=== PATIENT | female | born 1945 | race Caucasian/White ===

== ENCOUNTER → 2016-10-29 | Day surgery (SDC) | payer OTHER | END | disposition home or self-care (01) | LOC: FIMAGING 11:58 | PROVIDERS: ATTEND Physical Medicine & Rehabilitation | DX: M48.06 Spinal stenosis, lumbar region (principal); Z53.9 Procedure and treatment not carried out, unspecified reason ==

== ENCOUNTER 2016-11-04 12:05 | Day surgery (SDC) | payer OTHER ==
[2016-11-04] MEDS ORDERED: NS 1,000 ML IV SCH (12:45)
[2016-11-04] MEDS ORDERED: fentaNYL 100 MCG/2 ML INJ ONE (13:50)
[2016-11-04] MEDS ORDERED: MIDAZOLAM 2 MG/2 ML VIAL ONE (13:50)
[2016-11-04] MEDS ORDERED: TRIAMCINOLONE ACETONIDE 200 MG/5 ML MDV IM ONE (14:42)
[2016-11-04] MEDS ORDERED: IOPAMIDOL (ISOVUE-M 300) 15 ML VIAL IV ONE (14:43)
[2016-11-04] MEDS ORDERED: ONDANSETRON 4 MG/2 ML VIAL IVP PRN (14:58)
[2016-11-04] MEDS ORDERED: ONDANSETRON DISINTEGRATING 4 MG TAB PO PRN (15:02)
--- NOTE | 2016-11-04 16:59 | IR ---
Lumbar Epidural Injection via Caudal Epidural Catheter HISTORY: Recurrent low back pain. The patient enjoyed good results from previous injection of February 27, 2016. Symptoms reappeared in July 2016. Consent: Risks and benefits of the procedure were discussed in detail. Informed consent was obtained . MEDICATIONS: Intravenous conscious sedation and analgesia were given under my supervision. EKG, vital signs, and pulse oximetry were monitored. The patient received 2 mg of Versed and 100 mcg of fentany l, intravenously. Start time: 1355. End time: 1431. Fluoroscopy time in minutes: 3.3 Estimated exposure in milligray: 146. TECHNIQUE: With the patient prone, the upper intergluteal cleft was prepped and draped in sterile fas hion. 1% Xylocaine was used for local anesthetic. Biplane fluoroscopic guidance was used to place an 18-gauge Tuohy needle into the sacral spinal canal via the inferior sacral aperture. After removing t he stylette, the patient coughed and performed Valsalva maneuver. Neither blood nor spinal fluid retu rned into the hub of the needle. 1 mL of Isovue-M 300 was injected and biplane spot images were obtai johnny. A 2-Urdu Arrow epidural catheter was advanced over a 0.014 Mailman wire coaxially through the Tuohy needle. The wire was removed and an extrarenal hub was attached to the catheter. 2.5 mL of Isov ue-M 300 were injected and biplane spot images were obtained. 2 mL of Kenalog (80 mg) and 3 mL of pre servative free 1% Xylocaine were injected. Needle and catheter were removed. Biplane spot images were obtained. The patient tolerated the procedure well and was returned to postprocedure recovery area i n stable condition. Epidurogram: Compare February 27, 2016. The epidural catheter passes up the sacral spinal canal, terminati ng cephalad at the level of the upper cortical margin of L5. Epidural contrast extends from the level of the L4-L5 interspace down through S3. Severe features of chronic disk degeneration are again demo nstrated at L4-L5. IMPRESSION: Lumbosacral epidural injection of long-acting steroid and rapid-acting anesthetic via a c audally introduced epidural catheter. - - - - - - - - - - - - - - - - - - - - - - - - - - - - - (PQRS Measures: Current medications were listed in the medical record, including all known prescripti ons, fmoz-ypi-cyxwbod medications, herbal medications, and nutritional supplements. Tobacco use: None . Prophylactic Antibiotic: Unnecessary. VTE Prophylaxis: Unnecessary.)
== END 2016-11-04 15:30 | disposition home or self-care (01) ==
LOC: FIMAGING 12:05
PROVIDERS: ATTEND Radiology Diagnostic Radiology
PROC: 3E0S33Z Introduction of Anti-inflammatory into Epidural Space, Percutaneous Approach (ICD-10-PCS; principal; 2016-11-04 14:50)
PROC: 3E0S3BZ Introduction of Anesthetic Agent into Epidural Space, Percutaneous Approach (ICD-10-PCS; principal; 2016-11-04 14:50)
DX: M54.5 Low back pain (principal)
CPT/HCPCS: 62323; 99152; C1769; J2250; J3010; J3301; Q9967

== ENCOUNTER 2017-05-17 12:10 | Day surgery (SDC) | payer OTHER ==
[2017-05-17] MEDS ORDERED: FLUMAZENIL 0.5 MG/5 ML MDV IVP ONE (14:00)
[2017-05-17] MEDS ORDERED: NALOXONE HCL 0.4 MG/ML INJ ONE (14:00)
[2017-05-17] MEDS ORDERED: MIDAZOLAM 2 MG/2 ML VIAL ONE (14:00)
[2017-05-17] MEDS ORDERED: fentaNYL 100 MCG/2 ML INJ ONE (14:00)
[2017-05-17] MEDS ORDERED: ATROPINE SULFATE 1 MG/ML VIAL ONE (14:23)
[2017-05-17] MEDS ORDERED: TRIAMCINOLONE ACETONIDE 200 MG/5 ML MDV IM ONE (14:34)
[2017-05-17] MEDS ORDERED: IOPAMIDOL (ISOVUE-M 300) 15 ML VIAL ONE (14:34)
[2017-05-17] MEDS ORDERED: LIDOCAINE 1% 300 MG/30 ML SDV ONE (14:34)
[2017-05-17 15:13] VITALS: TEMP 97.7
== END 2017-05-17 15:21 | disposition home or self-care (01) ==
LOC: FIMAGING 12:10
PROVIDERS: ATTEND Physical Medicine & Rehabilitation
PROC: 3E0S33Z Introduction of Anti-inflammatory into Epidural Space, Percutaneous Approach (ICD-10-PCS; principal; 2017-05-17 14:34)
PROC: 3E0S3BZ Introduction of Anesthetic Agent into Epidural Space, Percutaneous Approach (ICD-10-PCS; principal; 2017-05-17 14:34)
DX: M48.06 Spinal stenosis, lumbar region (principal)
CPT/HCPCS: J0461; J2250; J2310; J3010; J3301; Q9967

== ENCOUNTER 2017-09-07 19:22 | Observation (INO) | payer OTHER ==
[2017-09-07] MEDS ORDERED: fentaNYL 100 MCG/2 ML INJ IVP ONE ×2 (19:44→21:50)
[2017-09-07] MEDS ORDERED: NS 1,000 ML IV ONE ×2 (19:44→20:20)
[2017-09-07] MEDS ORDERED: ONDANSETRON 4 MG/2 ML VIAL IVP ONE (19:44)
[2017-09-07 19:51] LABS: % IMMATURE GRANULYOCYTES 0.4 % (0.0-1.1); ABSOLUTE IMMATURE GRANULOCYTES 0.06 10^3/uL (0.00-0.10); ADD DIFF? NO; ADD MORPH? NO; ADD SCAN? NO; ATYPICAL LYMPHOCYTE FLAG 0 (0-99); FRAGMENT RBC FLAG 0 (0-99); HEMATOCRIT 41.2 % (38.0-47.0); HEMOGLOBIN 14.5 g/dL (12.6-16.3); LEFT SHIFT FLG 0 (0-99); LIPEMIA HEMOLYSIS FLAG 90 (0-99); MEAN CELL HEMOGLOBIN 28.5 pg (27.9-34.1); MEAN CELL HEMOGLOBIN CONCENTR. 35.2 g/dL (32.4-36.7); MEAN CELL VOLUME 80.9 fL (81.5-99.8); MEAN PLATELET VOLUME 8.9 fL (8.7-11.7); PLATELET CLUMPS FLAG 0 (0-99); PLATELET COUNT 339 10^3/uL (150-400); RED BLOOD CELL COUNT 5.09 10^6/uL (4.18-5.33); RED CELL DISTRIBUTION WIDTH 13.8 % (11.5-15.2)
--- NOTE | 2017-09-07 19:51 | EDPHY ---
HPI/HX/ROS/PE/MDM Narrative: CHIEF COMPLAINT: Abdominal pain HPI: This patient is a 72 year old female arriving with her complaining of abdominal pain onset Cody night, five days ago, following dinner. Her pain seems to move around her abdomen but is generally periumbilical, radiating to the right and left. The severity of her discomfort ranges from 5-8/10. If she lays on her left side, she is able to belch, and if she lies on her right, she is able to pass gas. She has had diarrhea for the past several days, but denies vomiting. She endorses reduced appetite. She denies history of abdominal surgery. She has taken narcotics daily for the last year to treat chronic pain due to spinal stenosis, but has not had difficulty with constipation in the past. She denies fever, chest pain, shortness of breath, urinary complaints, or other associated symptoms. REVIEW OF SYSTEMS: Aside from elements discussed in the HPI, a comprehensive 10-point review of systems was reviewed and is negative. PMH: Hysterectomy. Spinal stenosis (0.5mg Hydrocodone nightly). Hypertension. Hyperlipidemia. Hypothyroidism. Colitis. SOCIAL HISTORY: . at bedside. Lives in [place]. Retired. PHYSICAL EXAM: General:Patient is alert, in no acute distress. ENT:Eyes are normal to inspection. ENT inspection normal. Neck: Normal inspection. Full range of motion. Respiratory:No respiratory distress. Breath sounds normal bilaterally. Cardiovascular: Regular rate and rhythm. Strong peripheral pulses. Normal cap refill. Abdomen: Generalized abdominal tenderness. There are no peritoneal signs. There are normal bowel sounds. Back: Normal to inspection. No tenderness to palpation. Skin: Normal color. No rash. Warm and dry. Extremities: Normal appearance. Full range of motion. Neuro: Oriented x3. Normal motor function. Normal sensory function. ED Course: 72 year old female presents with five day history of abdominal pain. Exam reveals generalized lower abdominal tenderness. IV established. Plan for labs including CBC, chemistries, liver, lipase. Plan to administer 50mcg IV fentanyl and 4mg IV Zofran for symptom relief. Administered 1L IV NS. The patient's pain is resolved following administration of fentanyl and Zofran. Labs reveal hyponatremia, hypercalcemia. Plan to administer an additional 1L IV NS. Creatinine elevated at 1.4. Plan to proceed with CT abdomen/pelvis with contrast. 20:[address] Molina, radiologist. Evidence of inflammation of the ileum and stomach. No evidence of diverticulitis. No bowel obstruction. 2109: Re-assessed patient. She feels like pain is starting to come back and does not feel comfortable going home. The patient does have hyponatremia and hypercalcemia per lab work. I see no signs of surgical emergency. Discussed case with hospitalist service for admission. MDM: This patient presents with abdominal pain. Workup in the ED indicates likely enteritis, without evidence of surgical process. Patient was treated with pain medication and IVNS, but on re-evaluation her pain has returned and she does not feel comfortable going home. I think she is appropriate for observation stay overnight to ensure that symptoms do not change or worsen and to continue with supportive care. - Data Points Imaging: Discussed imaging studies w/ call center analyst Radiologist Laboratory Results: Laboratory Results 09/07/17 19:44 09/07/17 19:44 09/07/17 09/07/17 19:44 19:44 WBC 13.84 10^3/uL H 10^3/uL (3.80-9.50) RBC 5.09 10^6/uL 10^6/uL (4.18-5.33) Hgb 14.5 g/dL g/dL (12.6-16.3) Hct 41.2 % % (38.0-47.0) MCV 80.9 fL L fL (81.5-99.8) MCH 28.5 pg pg (27.9-34.1) MCHC 35.2 g/dL g/dL (32.4-36.7) RDW 13.8 % % (11.5-15.2) Plt Count 339 10^3/uL 10^3/uL (150-400) MPV 8.9 fL fL (8.7-11.7) Neut % (Auto) 68.5 % % (39.3-74.2) Lymph % (Auto) 21.7 % % (15.0-45.0) [place] % (Auto) 7.9 % % (4.5-13.0) Eos % (Auto) 0.9 % % (0.6-7.6) Baso % (Auto) 0.6 % % (0.3-1.7) Nucleat RBC Rel Count 0.0 % % (0.0-0.2) Absolute Neuts (auto) 9.46 10^3/uL H 10^3/uL (1.70-6.50) Absolute Lymphs (auto) 3.01 10^3/uL H 10^3/uL (1.00-3.00) Absolute Monos (auto) 1.10 10^3/uL H 10^3/uL (0.30-0.80) Absolute Eos (auto) 0.13 10^3/uL 10^3/uL (0.03-0.40) Absolute Basos (auto) 0.08 10^3/uL 10^3/uL (0.02-0.10) Absolute Nucleated RBC 0.00 10^3/uL 10^3/uL (0-0.01) Immature Gran % 0.4 % % (0.0-1.1) Immature Gran # 0.06 10^3/uL 10^3/uL (0.00-0.10) Sodium 127 mEq/L L mEq/L (134-144) Potassium 3.4 mEq/L L mEq/L (3.5-5.2) Chloride 90 mEq/L L mEq/L (97-110) Carbon Dioxide 23 mEq/l mEq/l (22-31) Anion Gap 14 mEq/L mEq/L (8-16) BUN 14 mg/dL mg/dL (7-23) Creatinine 1.4 mg/dL H mg/dL (0.6-1.0) Estimated GFR 37 Glucose 106 mg/dL H mg/dL (70-100) Calcium 12.1 mg/dL H mg/dL (8.5-10.4) Phosphorus 3.8 mg/dL mg/dL (2.5-4.5) Total Bilirubin 0.6 mg/dL mg/dL (0.1-1.4) Conjugated Bilirubin 0.1 mg/dL mg/dL (0.0-0.5) Unconjugated Bilirubin 0.5 mg/dL mg/dL (0.0-1.1) AST 30 IU/L IU/L (14-46) ALT 36 IU/L IU/L (9-52) Alkaline Phosphatase 119 IU/L IU/L (38-126) Total Protein 6.8 g/dL g/dL (6.3-8.2) Albumin 4.5 g/dL g/dL (3.5-5.0) Lipase 131 IU/L IU/L (23-300) Medications Given: Discontinued Medications Fentanyl (Sublimaze) 50 mcg IVP EDNOW ONE Stop: 09/07/17 19:45 Last Admin: 09/07/17 19:49 Dose: 50 mcg Sodium Chloride (Ns) 1,000 mls @ 0 mls/hr IV ONCE ONE; Wide Open PRN Reason: Protocol Stop: 09/07/17 19:45 Last Admin: 09/07/17 19:48 Dose: 1,000 mls Sodium Chloride (Ns) 1,000 mls @ 0 mls/hr IV ONCE ONE; Wide Open PRN Reason: Protocol Stop: 09/07/17 20:21 Last Admin: 09/07/17 20:34 Dose: 1,000 mls Ondansetron HCl (Zofran) 4 mg IVP EDNOW ONE Stop: 09/07/17 19:45 Last Admin: 09/07/17 19:48 Dose: 4 mg General Time Seen by Provider: 09/07/17 19:44 Initial Vital Signs: Initial Vital Signs Temperature (C) 36.7 C 09/07/17 19:27 Heart Rate 78 09/07/17 19:27 Respiratory Rate 14 09/07/17 19:27 Blood Pressure 149/88 H 09/07/17 19:27 O2 Sat (%) 95 09/07/17 19:27 O2 Delivery Mode Room Air Allergies/Adverse Reactions: erythromycin base Allergy (Verified 10/25/16 10:07) Home Medications: Medication Instructions Recorded Cholecalciferol Vit D3 [Vitamin D3 1,000 units PO DAILY 10/25/16 (*)] Gabapentin [Neurontin 300 MG (*)] 600 mg PO HS 10/25/16 Hydrochlorothiazide [HCTZ (*)] 25 mg PO DAILY 10/25/16 Levothyroxine [Synthroid 50 mcg 50 mcg PO DAILY06 10/25/16 (*)] Simvastatin 20 mg PO HS 10/25/16 Lisinopril [Zestril 10 mg (*)] 10 mg PO DAILY 09/07/17 Acetaminophen [Tylenol 325mg (*)] 650 mg PO Q4HRS PRN tab 09/08/17 oxyCODONE IR [Oxycodone Ir (*)] 5 - 10 mg PO Q3HRS PRN #14 tab 09/08/17 Departure - Departure Disposition: [facility] Inpatient Acute Clinical Impression: Abdominal pain, Hyponatremia, Hypercalcemia Condition: Fair Report Scribed for: Anthony Bowen Report Scribed by: Argenis Isaac Date of Report: 09/07/17 Time of Report: 19:51 Physician Review and Approval Statement: Portions of this note were transcribed by an ED scribe. I personally performed the history, physical exam, and medical decision making; and confirm the accuracy of the information in the transcribed note.
[2017-09-07 20:06] LABS: ALANINE AMINOTRANSFERASE 36 IU/L (9-52); ALBUMIN 4.5 g/dL (3.5-5.0); ALKALINE PHOSPHATASE 119 IU/L (38-126); ANION GAP 14 mEq/L (8-16); ASPARTATE AMINOTRANSFERASE 30 IU/L (14-46); BILIRUBIN,TOTAL 0.6 mg/dL (0.1-1.4); BILIRUBIN-CONJUGATED 0.1 mg/dL (0.0-0.5); BILIRUBIN-UNCONJUGATED 0.5 mg/dL (0.0-1.1); CALCIUM 12.1 mg/dL (8.5-10.4); CARBON DIOXIDE 23 mEq/l (22-31); CHLORIDE 90 mEq/L (97-110); CREATININE 1.4 mg/dL (0.6-1.0); GLOMERULAR FILTRATION RATE 37; GLUCOSE 106 mg/dL (70-100); POTASSIUM 3.4 mEq/L (3.5-5.2); SODIUM 127 mEq/L (134-144); TOTAL PROTEIN 6.8 g/dL (6.3-8.2)
[2017-09-07] MEDS ORDERED: IOPAMIDOL (ISOVUE-300) 100 ML BTL ONE (20:11)
[2017-09-07] MEDS ORDERED: ONDANSETRON 4 MG/2 ML VIAL IVP PRN (22:20)
[2017-09-07] MEDS ORDERED: ONDANSETRON DISINTEGRATING 4 MG TAB PO PRN (22:20)
[2017-09-07] MEDS ORDERED: ACETAMINOPHEN 325 MG TAB PO PRN (22:20)
[2017-09-07] MEDS ORDERED: NS 1,000 ML IV SCH (22:30)
--- NOTE | 2017-09-07 22:41 | PDGENHP ---
History and Physical - Chief Complaint Abdominal pain - History of Present Illness 72 yo F w/ HTN presents with abdominal pain. Patient explains she first developed abdominal pain on Tuesday, about 2 hours after going out to a restaurant to eat mussels. The diarrhea, describes as watery and non-bloody, continued for 3-4 days but has decreased in severity each day. She has had only one BM today. She thought she was well until the abdominal pain returned today, so she came to the ED. She has taken very little PO over the last few days as this exacerbates the pain. History Information - Allergies/Home Medication List Allergies/Adverse Reactions: erythromycin base Allergy (Verified 10/25/16 10:07) Home Medications: Cholecalciferol Vit D3 [Vitamin D3 (*)] 1,000 units PO DAILY 10/25/16 [Last Taken 1 Week Ago ~08/31/17] Gabapentin [Neurontin 300 MG (*)] 600 mg PO HS 10/25/16 [Last Taken 09/06/17] Hydrochlorothiazide [HCTZ (*)] 25 mg PO DAILY 10/25/16 [Last Taken 09/07/17] Hydrocodone/Acetaminophen [[place] 5/325 (*)] 1 tab PO HS PRN 10/25/16 [Last Taken 09/06/17] Levothyroxine [Synthroid 50 mcg (*)] 50 mcg PO DAILY06 10/25/16 [Last Taken ] Simvastatin 20 mg PO HS 10/25/16 [Last Taken 09/06/17] Lisinopril [Zestril 10 mg (*)] 10 mg PO DAILY 09/07/17 [Last Taken 09/07/17] I have personally reviewed and updated: family history, medical history - Past Medical History hypertension - Family History Positive for: cancer - Social History Smoking Status: Never smoked Review of Systems Review of Systems: ROS: 10pt was reviewed & negative except for what was stated in HPI & below Physical Exam Physical Exam: Temp Pulse Resp BP Pulse Ox 36.8 C 55 L 18 145/92 H 92 09/07/17 22:13 09/07/17 22:13 09/07/17 22:13 09/07/17 22:13 09/07/17 22:13 Constitutional: no apparent distress, appears nourished Eyes: PERRL, EOMI Ears, Nose, Mouth, Throat: moist mucous membranes, no oral mucosal ulcers Cardiovascular: regular rate and rhythym, systolic murmur Respiratory: no respiratory distress, no rales or rhonchi Gastrointestinal: normoactive bowel sounds, tenderness (Mild, diffuse), No guarding, No rebound, No distension Skin: warm, normal color Musculoskeletal: full muscle strength, no muscle tenderness Neurologic: AAOx3, CN II-XII Intact Psychiatric: interacting appropriately, not anxious Lab Data & Imaging Review 09/07/17 19:44 09/07/17 19:44 WBC 13.84 10^3/uL (3.80-9.50) H 09/07/17 19:44 RBC 5.09 10^6/uL (4.18-5.33) 09/07/17 19:44 Hgb 14.5 g/dL (12.6-16.3) 09/07/17 19:44 Hct 41.2 % (38.0-47.0) 09/07/17 19:44 MCV 80.9 fL (81.5-99.8) L 09/07/17 19:44 MCH 28.5 pg (27.9-34.1) 09/07/17 19:44 MCHC 35.2 g/dL (32.4-36.7) 09/07/17 19:44 RDW 13.8 % (11.5-15.2) 09/07/17 19:44 Plt Count 339 10^3/uL (150-400) 09/07/17 19:44 MPV 8.9 fL (8.7-11.7) 09/07/17 19:44 Neut % (Auto) 68.5 % (39.3-74.2) 09/07/17 19:44 Lymph % (Auto) 21.7 % (15.0-45.0) 09/07/17 19:44 [place] % (Auto) 7.9 % (4.5-13.0) 09/07/17 19:44 Eos % (Auto) 0.9 % (0.6-7.6) 09/07/17 19:44 Baso % (Auto) 0.6 % (0.3-1.7) 09/07/17 19:44 Nucleat RBC Rel Count 0.0 % (0.0-0.2) 09/07/17 19:44 Absolute Neuts (auto) 9.46 10^3/uL (1.70-6.50) H 09/07/17 19:44 Absolute Lymphs (auto) 3.01 10^3/uL (1.00-3.00) H 09/07/17 19:44 Absolute Monos (auto) 1.10 10^3/uL (0.30-0.80) H 09/07/17 19:44 Absolute Eos (auto) 0.13 10^3/uL (0.03-0.40) 09/07/17 19:44 Absolute Basos (auto) 0.08 10^3/uL (0.02-0.10) 09/07/17 19:44 Absolute Nucleated RBC 0.00 10^3/uL (0-0.01) 09/07/17 19:44 Immature Gran % 0.4 % (0.0-1.1) 09/07/17 19:44 Immature Gran # 0.06 10^3/uL (0.00-0.10) 09/07/17 19:44 Sodium 127 mEq/L (134-144) L 09/07/17 19:44 Potassium 3.4 mEq/L (3.5-5.2) L 09/07/17 19:44 Chloride 90 mEq/L (97-110) L 09/07/17 19:44 Carbon Dioxide 23 mEq/l (22-31) 09/07/17 19:44 Anion Gap 14 mEq/L (8-16) 09/07/17 19:44 BUN 14 mg/dL (7-23) 09/07/17 19:44 Creatinine 1.4 mg/dL (0.6-1.0) H 09/07/17 19:44 Estimated GFR 37 09/07/17 19:44 Glucose 106 mg/dL (70-100) H 09/07/17 19:44 Calcium 12.1 mg/dL (8.5-10.4) H 09/07/17 19:44 Phosphorus 3.8 mg/dL (2.5-4.5) 09/07/17 19:44 Total Bilirubin 0.6 mg/dL (0.1-1.4) 09/07/17 19:44 Conjugated Bilirubin 0.1 mg/dL (0.0-0.5) 09/07/17 19:44 Unconjugated Bilirubin 0.5 mg/dL (0.0-1.1) 09/07/17 19:44 AST 30 IU/L (14-46) 09/07/17 19:44 ALT 36 IU/L (9-52) 09/07/17 19:44 Alkaline Phosphatase 119 IU/L (38-126) 09/07/17 19:44 Total Protein 6.8 g/dL (6.3-8.2) 09/07/17 19:44 Albumin 4.5 g/dL (3.5-5.0) 09/07/17 19:44 Lipase 131 IU/L (23-300) 09/07/17 19:44 Imaging Review: CT A/P with subtle findings possibly consistent with enteritis. Assessment & Plan Assessment: 72 yo F w/ HTN presents with enteritis and associated dehydration. Plan: 1. Abdominal pain - Suspect viral gastroenteritis noting history of several days of diarrhea and abdominal pain after eating at a seafood restaurant. Denies bloody stools or melena. CT A/P only with subtle findings of possible enteritis; LFTs WNL. - Oxycodone, morphine PRN for pain - mIVF, clear liquid diet and advance as tolerated - Will not send GI PCR for now as diarrhea has resolved, would consider this if diarrhea were to again increase or she does not improve as expected with supportive care only 2. Hyponatremia - Suspect hypovolemic etiology in setting of diarrhea and poor PO intake. IVF and recheck BMP. 3. SERENE - Cr 1.4 on admission, likely pre-renal azotemia. IVF and recheck BMP. 4. HTN - Well controlled on home meds 5. Hypothyroid - On LTX as outpatient Diet - Clears, ADAT Ppx - SCDs Code - Full Dispo - Admit to observation status
[2017-09-07] MEDS ORDERED: POTASSIUM Cl (KCl) 40 MEQ in NS 1,000 ML IV SCH (22:45)
[2017-09-08] MEDS: oxyCODONE IR 5 MG TAB PO PRN ×2 (02:41→08:34)
[2017-09-08 04:55] LABS: % IMMATURE GRANULYOCYTES 0.4 % (0.0-1.1); ABSOLUTE IMMATURE GRANULOCYTES 0.04 10^3/uL (0.00-0.10); ADD DIFF? NO; ADD MORPH? NO; ADD SCAN? NO; ATYPICAL LYMPHOCYTE FLAG 0 (0-99); FRAGMENT RBC FLAG 0 (0-99); HEMATOCRIT 34.6 % (38.0-47.0); HEMOGLOBIN 11.3 g/dL (12.6-16.3); LEFT SHIFT FLG 0 (0-99); LIPEMIA HEMOLYSIS FLAG 80 (0-99); MEAN CELL HEMOGLOBIN 27.3 pg (27.9-34.1); MEAN CELL HEMOGLOBIN CONCENTR. 32.7 g/dL (32.4-36.7); MEAN CELL VOLUME 83.6 fL (81.5-99.8); PLATELET CLUMPS FLAG 0 (0-99); PLATELET COUNT 255 10^3/uL (150-400); RED BLOOD CELL COUNT 4.14 10^6/uL (4.18-5.33)
[2017-09-08 05:16] LABS: ANION GAP 11 mEq/L (8-16); CALCIUM 9.4 mg/dL (8.5-10.4); CARBON DIOXIDE 21 mEq/l (22-31); CHLORIDE 99 mEq/L (97-110); CREATININE 1.3 mg/dL (0.6-1.0); GLOMERULAR FILTRATION RATE 40; GLUCOSE 88 mg/dL (70-100); MAGNESIUM 1.5 mg/dL (1.6-2.3); POTASSIUM 3.7 mEq/L (3.5-5.2); SODIUM 131 mEq/L (134-144)
[2017-09-08] MEDS ORDERED: CHOLECALCIFEROL VIT D3 1,000 UNITS TAB PO SCH (09:00)
[2017-09-08] MEDS ORDERED: LISINOPRIL 10 MG TAB PO SCH (09:00)
[2017-09-08 11:14] VITALS: BP 181/72; PULSE 46; RESP 16; TEMP 98.3; O2SAT 92
--- NOTE | 2017-09-08 11:31 | ASMTCMCOM ---
CM Note CM Note Notes: Pt. is a 72-year-old woman admitted in OBS status with abdominal pain. Pt. w/ hx. hysterectomy, spinal stenosis, colitis, and HTN. Pt. has chronic pain from spinal stenosis and on daily narcotics. Pt. lives w/ her [employer]. Pt. likely to be d/c'ed indpendently. CM available should d/c POC change. Date Signed: 09/08/2017 11:30 AM Electronically Signed By:Kimberley Red LCSW
--- NOTE | 2017-09-08 13:14 | GDS ---
[f rep st] DISCHARGE SUMMARY DISCHARGE DIAGNOSES: 1. Abdominal pain. 2. Hyponatremia. 3. Acute kidney injury. 4. Hypertension. 5. Hypothyroidism. 6. Enteritis. STUDIES AND PROCEDURES DONE: 1. CT of the abdomen. 2. Abdominal x-ray. PHYSICAL EXAM: GENERAL: The patient is alert. VITAL SIGNS: Afebrile at 36.8, pulse is 52, respira tory rate is 18, blood pressure is 126/62. She is saturating 94% on room air. I have seen and evaluated the patient on the day of discharge. HOSPITAL COURSE: The patient is a 72-year-old female who presented to the emergency room with compla ints of abdominal pain. She was evaluated and diagnosed with: 1. Enteritis. During this hospitalization she received a CT scan, as well as an abdominal x-ray. T here is no clear-cut evidence of small bowel obstruction or diverticulitis. The patient was treated with supportive management. She still has mild intermittent pain. I suspect that this will resolve over time. She has received lots of discharge instruction regarding the need to return to the emerge ncy room if her symptoms worsen or if she develops fever or continued symptoms. 2. Hyponatremia. This is in the setting of hypovolemia, and has resolved with IV fluids. 3. Acute kidney injury. Again in the setting of hypovolemia. Improved with fluid hydration. 4. History of hypertension. Her home medications will be initiated at the time of disposition. 5. History of hypothyroidism. Her medications will be initiated at home. DISPOSITION: The patient will be discharged home independently with her . There are no pendi ng studies. Followup will be with her primary care physician. Again, she has been instructed to ret urn to the emergency room if she has any worsening symptoms or issues. /[id number]/MODL
[2017-09-08] MEDS ORDERED: GABAPENTIN 300 MG CAP PO SCH (21:00)
[2017-09-08] MEDS ORDERED: NON-FORMULARY NEW DRUG (Simvastatin [Simvastatin] 20 MG) PO SCH (21:00)
[2017-09-08] MEDS ORDERED: ATORVASTATIN CALCIUM 10 MG TAB PO SCH (21:00)
[2017-09-09] MEDS ORDERED: LEVOTHYROXINE 50 MCG TAB PO SCH (06:00)
--- NOTE | 2017-09-09 10:17 | ASDISCHSUM ---
Discharge Information Plan Status:Home with No Needs Medically Cleared to Leave:09/07/2017 Discharge Date:09/08/2017 01:05 PM CM D/C Disposition:Home, Routine, Self-Care ADT D/C Disposition:Home, Routine, Self-Care Projected Discharge Date:09/08/2017 12:00 AM Transportation at D/C: Discharge Delay Reason: Follow-Up Date:09/08/2017 12:00 AM Discharge Slot: Final Diagnosis: Placement Information Patient Contact Information Contact Name:ADONAY Relationship: Address:[address] City:[place] Alternate Phone: [facility]/Zip Code:[place] [address] Email: Financial Information Financial Class:Medicare Advantage Plans Primary Plan Desc:[employer] MEDICARE ADV Primary Plan Number:[id number] Secondary Plan Desc: Secondary Plan Number: Assessment Information [facility] CM Progress Note CM Note CM Note Notes: Pt. is a 72-year-old woman admitted in OBS status with abdominal pain. Pt. w/ hx. hysterectomy, spinal stenosis, colitis, and HTN. Pt. has chronic pain from spinal stenosis and on daily narcotics. Pt. lives w/ her [employer]. Pt. likely to be d/c'ed indpendently. CM available should d/c POC change. Date Signed: 09/08/2017 11:30 AM Electronically Signed By:Kimberley Red LCSW Case Management Discharge Plan Note Case Management Discharge Discharge Order Complete? Answers: Yes Patient to Obtain Answers: via Family Medications Discharge Comments Notes: Pt. d/cing today independently. No APPIAH required due to within d/c timeframe. No IM required. Date Signed: 09/08/2017 01:02 PM Electronically Signed By:Kimberley Red LCSW Intervention Information
== END 2017-09-08 13:05 | disposition home or self-care (01) ==
LOC: F3E 22:11
PROVIDERS: ADMIT Internal Medicine; ATTEND Hospitalist
PROC: 3E0337Z Introduction of Electrolytic and Water Balance Substance into Peripheral Vein, Percutaneous Approach (ICD-10-PCS; principal; 2017-09-07)
DX: R10.9 Unspecified abdominal pain (principal); E87.1 Hypo-osmolality and hyponatremia; E83.52 Hypercalcemia; E86.9 Volume depletion, unspecified; K52.9 Noninfective gastroenteritis and colitis, unspecified; N17.9 Acute kidney failure, unspecified; I10 Essential (primary) hypertension; E03.9 Hypothyroidism, unspecified; E78.5 Hyperlipidemia, unspecified; G89.29 Other chronic pain; M48.00 Spinal stenosis, site unspecified
CPT/HCPCS: 74000; 74177; 96361; 96374; 96375; 96376; 99285; G0378; J2405; J3010; Q9967

== ENCOUNTER → 2017-11-16 | Outpatient (CLI) | payer OTHER | LOC: FIMAGING 18:47 | PROVIDERS: ATTEND Family Medicine | DX: M47.897 Other spondylosis, lumbosacral region (principal); M48.061 Spinal stenosis, lumbar region without neurogenic claudication; M51.27 Other intervertebral disc displacement, lumbosacral region ==

== ENCOUNTER 2017-12-28 08:51 | Inpatient (IN) | payer OTHER ==
[2017-12-28] MEDS ORDERED: ACETAMINOPHEN 500 MG TAB PO ONE (09:09)
[2017-12-28] MEDS ORDERED: ceFAZolin 2 GM/SWFI 2 GM/20 ML SYR IVP ONE (09:09)
[2017-12-28] MEDS ORDERED: LIDOCAINE 1% 2 ML INJ ID PRN (09:11)
[2017-12-28] MEDS ORDERED: LR 1,000 ML IV ONE (09:11)
[2017-12-28] MEDS ORDERED: CHLORHEXIDINE GLUC HIBICLENS 118 ML BTL TP ONE (09:37)
[2017-12-28] MEDS ORDERED: THROMBIN (BOVINE) 5,000 UNIT VIAL TP ONE (09:37)
[2017-12-28] MEDS ORDERED: BUPIVACAINE 0.25% 30 ML SDV ONE (09:37)
[2017-12-28] MEDS ORDERED: AVITENE POWDER 1 GM JAR TP ONE (09:38)
[2017-12-28] MEDS ORDERED: BACITRACIN 50,000 UNITS/10 ML SYR IRR ONE (09:38)
--- NOTE | 2017-12-28 09:53 | PDHPUP ---
History & Physical Update H&P update statement: This history and physical update is based on an assessment of the patient which was completed after admission or registration (within 24 hours), but prior to the surgery/procedure. H&P update: H&P reviewed & patient examined, no change in patient's condition since H&P completed
[2017-12-28] MEDS ORDERED: fentaNYL 100 MCG/2 ML INJ ONE (10:12)
[2017-12-28] MEDS ORDERED: PROPOFOL/EMULSION 500 MG/50 ML BOTTLE IV ONE (10:12)
[2017-12-28] MEDS ORDERED: MIDAZOLAM 2 MG/2 ML VIAL ONE (10:12)
--- NOTE | 2017-12-28 10:58 | PDANEPAE ---
ANE Past Medical History - Cardiovascular History Hx Hypertension: Yes Hx Arrhythmias: No Hx Chest Pain: No Hx Coronary Artery / Peripheral Vascular Disease: No Hx CHF / Valvular Disease: No Hx Palpitations: No Cardiovascular History Comment: Hyperlipidemia - Pulmonary History Hx COPD: No Hx Asthma/Reactive Airway Disease: No Hx Recent Upper Respiratory Infection: No Hx Oxygen in Use at Home: No Hx Sleep Apnea: No Sleep Apnea Screening Result - Last Documented: Negative - Neurologic History Hx Cerebrovascular Accident: No Hx Seizures: No Hx Dementia: No - Endocrine History Hx Diabetes: No Endocrine History Comment: Hypothyroid - Renal History Hx Renal Disorders: No Renal History Comment: CHRONIC RENAL INSUFF - Liver History Hx Hepatic Disorders: No - Neurological & Psychiatric Hx Hx Neurological and Psychiatric Disorders: No Neurological / Psychiatric History Comment: Spinal stenosis, degenerative joint disease, degenerative disk disease - Cancer History Hx Cancer: No - Congenital Disorder History Hx Congenital Disorders: No - GI History Hx Gastrointestinal Disorders: Yes Gastrointestinal History Comment: ACID REFLUX - Other Health History Other Health History: Chronic pain - BACK - Chronic Pain History Chronic Pain: Yes (LOW BACK & LEGS/FEET NUMBNESS) - Surgical History Prior Surgeries: colonoscopy. EPIDURAL INJS X3. BREAST CYSTS. TONSILLECTOMY. HYSTERECTOMY ANE Review of Systems Review of Systems: - Exercise capacity METS (RN): 4 METS ANE Patient History - Allergies Allergies/Adverse Reactions: erythromycin base Allergy (Verified 12/13/17 13:29) gi upset - Home Medications Home Medications: Cholecalciferol Vit D3 [Vitamin D3 (*)] 1,000 units PO DAILY 10/25/16 [Last Taken 12/21/17] Gabapentin [Neurontin 300 MG (*)] 600 mg PO HS 10/25/16 [Last Taken 12/27/17 19: 30] Levothyroxine [Synthroid 50 mcg (*)] 50 mcg PO DAILY06 10/25/16 [Last Taken 07:30] Lisinopril [Zestril 10 mg (*)] 10 mg PO DAILY 09/07/17 [Last Taken 12/27/17 10: 30] Acetaminophen/ASA/Caffeine [Excedrin Tablet (*)] 2 each PO DAILY 12/13/17 [Last Taken 12/21/17] Acetamn/Diphenhydramine 500/25 [Tylenol PM (*)] 2 each PO HS 12/13/17 [Last Taken 12/27/17 22:00] Furosemide [Lasix 20 MG (*)] 20 mg PO DAILY 12/13/17 [Last Taken 12/27/17 07:30] Hydrocodone/Acetaminophen [[place] 5/325 (*)] 1 tab PO HS 12/13/17 [Last Taken 07/04] Ranitidine HCl [Zantac 75] 75 mg PO DAILY PRN 12/13/17 [Last Taken 12/28/17 07: 30] Simethicone [Gas-X] 125 mg PO DAILY PRN 12/13/17 [Last Taken 12/26/17] Simvastatin [Zocor] 20 mg PO HS 12/13/17 [Last Taken 12/27/17 19:30] - NPO status NPO Since - Liquids (Date): 12/27/17 NPO Since - Liquids (Time): 23:30 NPO Since - Solids (Date): 12/27/17 NPO Since - Solids (Time): 22:00 - Smoking Hx Smoking Status: Former smoker - Family Anes Hx Family Hx Anesthesia Complications: none ANE Labs/Vital Signs - Vital Signs Blood Pressure: 130/81 Heart Rate: 67 Respiratory Rate: 14 O2 Sat (%): 94 Height: 163.83 cm Weight: 76.204 kg ANE Physical Exam - Airway Neck exam: FROM Mallampati Score: Class 1 Mouth exam: normal dental/mouth exam - Pulmonary Pulmonary: clear to auscultation - Cardiovascular Cardiovascular: regular rate and rhythym, pulses symmetric bilaterally - ASA Status ASA Status: III ANE Anesthesia Plan Anesthesia Plan: general endotracheal anesthesia
[2017-12-28] MEDS ORDERED: PHENYLEPHRINE HCL 100 MCG/ML SYR IVP PRN (11:05)
[2017-12-28] MEDS ORDERED: MEPERIDINE 25 MG/ML SYR IVP PRN (11:05)
[2017-12-28] MEDS ORDERED: LR 500 ML IV PRN (11:05)
[2017-12-28] MEDS ORDERED: DEXAMETHASONE 4 MG/ML VIAL IVP PRN (11:05)
[2017-12-28] MEDS ORDERED: epHEDrine SULFATE 10 MG/ML SYR IVP PRN (11:05)
[2017-12-28] MEDS ORDERED: ALBUTEROL 3 ML DEYVIAL IH PRN (11:05)
[2017-12-28] MEDS ORDERED: NALOXONE HCL 0.4 MG/ML INJ IVP PRN (11:05)
[2017-12-28] MEDS ORDERED: ONDANSETRON 4 MG/2 ML VIAL IVP PRN ×2 (11:05→13:20)
[2017-12-28] MEDS ORDERED: fentaNYL 100 MCG/2 ML INJ IVP PRN (11:05)
[2017-12-28] MEDS ORDERED: DIAZEPAM 5 MG/ML 1 ML SYR IVP PRN (11:05)
[2017-12-28] MEDS ORDERED: SUGAMMADEX SODIUM 200 MG/2 ML VIAL IVP ONE (11:11)
[2017-12-28] MEDS ORDERED: ROCURONIUM 50 MG/5 ML VIAL ONE (11:11)
[2017-12-28] MEDS ORDERED: LIDOCAINE 2% 5 ML SDV ONE (11:11)
[2017-12-28] MEDS ORDERED: ONDANSETRON 4 MG/2 ML VIAL ONE (11:11)
[2017-12-28] MEDS ORDERED: PROPOFOL 200 MG/20 ML VIAL ONE (12:02)
--- NOTE | 2017-12-28 13:13 | POSTANESTH ---
Post Anesthetic Evaluation Cardiovascular Status: Normal, Stable Respiratory Status: Normal, Stable Level of Consciousness/Mental Status: Can Participate in Eval Pain Control: Adequate, Prn Tx Ordered Nausea/Vomiting Control: Adequate, Prn Tx Ordered Complications Possibly Related to Anesthesia: None Noted
--- NOTE | 2017-12-28 13:18 | POSTOPPROG ---
Post Op Note Date of Operation: 12/28/17 Surgeon: Lalit Obrien Toddler Guide: Emi Gama Anesthesiologist: Katty Anesthesia: GET(General Endotracheal) Pre-op Diagnosis: Lumbar stenosis with claudication Post-op Diagnosis: same Procedure: Sp L3-S1 minimally invasive decompression Findings: see dicateted operative report Inf/Abcess present in the surg proc area at time of surgery?: No Depth: Organ Space EBL: Minimal SOAP Progress Note Assessment/Plan: Assessment: Plan: 12/28/17 13:15 S: Patient in PACU. Stable O: NAD, VSS PERRL, EOMI Cn II-XII grossly intact MAD X 4 BUE/BLE 5/5 - Right leg quad slightly weaker than left as was preop open sensation intact to lt touch Incision c/d/i- dressed A: 72 yo female sp L3-S1 minimally invasive decompression P: -Admit to med/surg -Advance diet as tolerated -Optimize pain management -No toradol due to kidney function -PT/OT -DVT: TEDs, SCDs, Lovenox tomorrow -hopeful for DC tomorrow if cleared by therapies and doing well Objective: Vital Signs Temp Pulse Resp BP Pulse Ox 36.7 C 67 14 130/81 H 94 12/28/17 09:44 12/28/17 10:58 12/28/17 10:58 12/28/17 10:58 12/28/17 10:58
[2017-12-28] MEDS ORDERED: diphenhydrAMINE 25 MG CAP PO PRN (13:20)
[2017-12-28] MEDS ORDERED: LACTULOSE 20 GM/30 ML UDCUP PO PRN (13:20)
[2017-12-28] MEDS ORDERED: BISACODYL 10 MG SUPP PR PRN (13:20)
[2017-12-28] MEDS ORDERED: POLYETHYLENE GLYCOL 3350 17 GM PKT PO PRN (13:20)
[2017-12-28] MEDS ORDERED: MAGNESIUM HYDROXIDE 30 ML UDCUP PO PRN (13:20)
[2017-12-28] MEDS ORDERED: ONDANSETRON DISINTEGRATING 4 MG TAB PO PRN (13:20)
[2017-12-28] MEDS ORDERED: NS W/ 20 KCl/L 1,000 ML IV SCH (13:30)
[2017-12-28] MEDS ORDERED: FAMOTIDINE 20 MG TAB PO PRN (13:53)
[2017-12-28] MEDS ORDERED: ceFAZolin 2 GM/DEXTROSE 100 ML IV SCH (14:00)
[2017-12-28] MEDS: PETROLAT,WHT/MIN OIL/SOD CHL 3.5 GM OPHT.OINT RTEYE PRN ×3 (16:52→19:41)
[2017-12-28] MEDS: METHOCARBAMOL 750 MG TAB PO PRN (16:55)
[2017-12-28] MEDS: HYDROCODONE/APAP 5/325 TAB PO PRN (19:36)
[2017-12-28] MEDS: ceFAZolin 2 GM/SWFI 2 GM/20 ML SYR IVP SCH (19:37)
[2017-12-28] MEDS: ACETAMN/DIPHENHYDRAMINE 500/25MG TAB PO SCH (20:10)
[2017-12-28] MEDS: SENNOSIDES/DOCUSATE SODIUM TAB PO SCH (20:10)
[2017-12-28] MEDS: GABAPENTIN 300 MG CAP PO SCH (20:10)
[2017-12-28] MEDS: ATORVASTATIN CALCIUM 10 MG TAB PO SCH (20:10)
--- NOTE | 2017-12-28 21:48 | GOP ---
[f rep st] OPERATIVE REPORT DATE OF OPERATION: 12/28/2017 SURGEON: Lalit Obrien MD NEUROSURGEON: Lalit Obrien MD. DUMP ATTENDANT: Emi Willis PA-C. PREOPERATIVE DIAGNOSIS: Lumbar stenosis with neurogenic claudication. POSTOPERATIVE DIAGNOSIS: Lumbar stenosis with neurogenic claudication. PROCEDURE PERFORMED: 1. Minimally invasive laminectomy for lumbar decompression L3-4, L4-5, L5-S1. 2. Use of the operative microscope. 3. Stealth stereotactic neuronavigation for localization of level and minimally invasive laminectomy with the use of the O arm. 4. Intraoperative neurophysiologic monitoring including somatosensory evoked potentials and EMG. FINDINGS: Successful lumbar decompression at L3-S1. SPECIMENS: None. ESTIMATED BLOOD LOSS: 25 cc. INDICATIONS: The patient is a 72-year-old woman with who presented to the office with neurogenic cla udication. MRI showed severe lumbar stenosis and lateral recess stenosis at L3-4, L4-5, L5-S1. We d iscussed the options and she tried conservative management with gabapentin and injections, but this w as short-lived if any relief for her. She presents electively today for surgery. DESCRIPTION OF PROCEDURE: After informed consent was obtained from the patient, the patient was brou ght to the operating room and a formal time-out was performed, identifying the patient by name, medic al record number and date of . Preoperative antibiotics were given. The endotracheal tube was placed and general endotracheal anesthesia was smoothly induced. All appropriate leads were placed f or intraoperative neurophysiologic monitoring including somatosensory evoked potentials and EMG. The patient was then turned to the prone position on the Nicholas table and all appropriate pressure poin ts were padded and checked. The lumbar region was then prepped and draped in the normal sterile critical access hospital ion. A stab incision was made over the left iliac crest, and the percutaneous pin with the stealth f rame was placed through the iliac crest. An O arm spin was then obtained showing the relevant anatom y from L3-S1, and this was used to localize the trajectories to the right-sided lamina via midline in cision. A 2 cm incision was marked such that we could access each of these levels with that angle, a nd the subcutaneous tissues were dissected using monopolar electrocautery. The fascia was opened in the midline. At this point, we started at the L3-4 level and the navigated dilator was placed on to the L3 lamina parallel with the L3-4 disk space. The muscle was elevated from the lamina and the suc cessive dilators were used to dilate up to an 18 mm tube. A 5 cm quadrant retractor was then placed and opened over the lamina. The relevant anatomy was localized using the Stealth, and the high-speed drill with a 3 mm raymond bur was then used to drill a hemilaminotomy at L3 on the right side. The yellow ligament was opened and removed and the lateral recess on the right side was decompressed. We then drilled the undersurface of the lamina of the left side into the left-sided lateral recess and the remaining yellow ligament was completely removed, performing a full decompression at that level o f bilateral lateral recesses in the central canal. Seeing no further compression, some powdered Gelf oam was placed over the dura and the wound was copiously irrigated. The quadrant retractors were rem [place]. The navigated dilator was then used to reposition over the L4 lamina parallel with the L4-[address] space. Again, the muscle was elevated and the relevant anatomy was identified. The hemilaminotom y was drilled using the high-speed drill and medial facetectomy was performed. Again, the yellow lig ament was opened. There was extreme compression at this level with the yellow ligament and it was ca refully dissected away from the dura. The undersurface of the left-sided lamina was again drilled pe rforming a complete laminectomy, and the complete yellow ligament was removed. Once there was no fur ther compression again, the wound was copiously irrigated and the dura was covered with Gelfoam. One more time, the dilators were used to replace the retractor at the L5-S1 disk space and again a hemil aminotomy was drilled at L5 on the right side and the undersurface of the lamina was drilled, perform ing a complete lumbar decompression at that level. The yellow ligament was completely removed and th is gave excellent decompression of the dura. At this point, the area was inspected with the operativ e microscope and no further compression was seen at any level. The quadrant retractor was removed an d the muscle was allowed to return to its normal position. The fascia was closed in a watertight fas hion using interrupted 0 Vicryl. The deep dermis was closed using interrupted 2-0 Vicryl and the ski n was closed using a subcuticular 4-0 Monocryl and Dermabond. The percutaneous pin was removed and t hat wound was closed as well. Sterile dressings were then placed. The patient was awakened in the o perating room, was transferred to the PACU in stable condition. FLUIDS AND URINE OUTPUT: Per the anesthesia record. DRAINS: None. /[id number]/MODL
[2017-12-29] MEDS: ceFAZolin 2 GM/SWFI 2 GM/20 ML SYR IVP SCH (03:55)
[2017-12-29] MEDS: LEVOTHYROXINE 50 MCG TAB PO SCH (05:22)
[2017-12-29] MEDS: HYDROCODONE/APAP 5/325 TAB PO PRN ×2 (05:26→09:32)
[2017-12-29] MEDS: PETROLAT,WHT/MIN OIL/SOD CHL 3.5 GM OPHT.OINT RTEYE PRN ×2 (05:28→09:30)
--- NOTE | 2017-12-29 09:07 | NEUSURGPN ---
Assessment/Plan: A: 72 yo female sp L3-S1 minimally invasive decompression POD#1 P: -Positional headaches - will monitor and see if these persist today -Advance diet as tolerated -Optimize pain management -No toradol due to kidney function -PT/OT -DVT: TEDs, SCDs, Lovenox -hopeful for DC today if cleared by therapies and doing well -D/w Dr Obrien Subjective: Pt resting in bed, has back pain but leg numbness is improved. Objective: AAOx3 NAD VSS MAEx4 Motor 5/5 BLE Incision cdi dressed +LT Urinary Catheter in Place: No Neurosurgery Physical Exam - Vitals, I&O, Labs I and O 12/28/17 12/29/17 12/30/17 05:59 05:59 05:59 Intake Total 1450 300 Output Total 670 Balance 780 300 Weight 76.204 kg Intake: Oral (ml) 1050 300 IV Intake (ml) 400 Output: Urine (ml) 650 Toilet 650 Estimated Blood Loss (ml) 20 Other: Intake Quantity Yes Sufficient Number of Voids Toilet 1 Vital Signs Temp Pulse Resp BP Pulse Ox 37.4 C 80 16 115/69 96 12/29/17 08:00 12/29/17 08:00 12/29/17 08:00 12/29/17 08:00 12/29/17 08:00 ICD10 Worksheet Patient Problems: Problems Problem Status Onset Abdominal pain Acute Hypercalcemia Acute Hyponatremia Acute
[2017-12-29] MEDS: SENNOSIDES/DOCUSATE SODIUM TAB PO SCH ×2 (09:30→20:22)
[2017-12-29] MEDS: FUROSEMIDE 20 MG TAB PO SCH (09:31)
[2017-12-29] MEDS: LISINOPRIL 10 MG TAB PO SCH (09:31)
[2017-12-29] MEDS: ENOXAPARIN 40 MG/0.4 ML SYR SC SCH (09:33)
[2017-12-29] MEDS: METHOCARBAMOL 750 MG TAB PO PRN (09:33)
[2017-12-29] MEDS: oxyCODONE IR 5 MG TAB PO PRN ×3 (11:08→18:26)
--- NOTE | 2017-12-29 14:34 | ASMTCMCOM ---
CM Note CM Note Notes: Chart reviewed for discharge needs. Patient 72 year old is POD 1 s/p spinal decompression, Therapies have cleared patient for dc to home independent with walker. CM available should needs arise. Date Signed: 12/29/2017 02:33 PM Electronically Signed By:Stefany Blas RN
--- NOTE | 2017-12-29 17:57 | PDMN ---
Medical Necessity Medical necessity: Patient meets inpatient criteria per PA note and CMS guidelines: LOS will be > 2 midnights for ongoing back pain and headaches postop.)
[2017-12-29] MEDS: ATORVASTATIN CALCIUM 10 MG TAB PO SCH (20:22)
[2017-12-29] MEDS: ACETAMN/DIPHENHYDRAMINE 500/25MG TAB PO SCH (20:22)
[2017-12-29] MEDS: GABAPENTIN 300 MG CAP PO SCH (20:22)
[2017-12-30] MEDS: oxyCODONE IR 5 MG TAB PO PRN ×4 (02:19→20:35)
[2017-12-30] MEDS: LEVOTHYROXINE 50 MCG TAB PO SCH (05:53)
--- NOTE | 2017-12-30 09:02 | NEUSURGPN ---
Assessment/Plan: A: 72 yo female sp L3-S1 minimally invasive decompression POD#2 P: -Positional headaches - patient states that headaches are worse when she is laying down. Will advance activity today and see how she does. Encourage caffeine and fluids. -Advance diet as tolerated -Optimize pain management -No toradol due to kidney function -PT/OT -DVT: TEDs, SCDs, Lovenox -hopeful for DC today if cleared by therapies and doing well -D/w Dr Obrien Subjective: Pt resting in bed, at bedside. States that she has the headaches on the top of her head/crown when she is laying down. They get better when she is upright. Objective: AAOx3 NAD VSS MAEx4 Motor 5/5 BLE Incision dressed cdi +LT Urinary Catheter in Place: No - Physician Discussed Patient with : Micah Neurosurgery Physical Exam - Vitals, I&O, Labs I and O 12/29/17 12/30/1718 05:59 05:59 05:59 Intake Total 1450 1950 Output Total 670 750 Balance 780 1200 Weight 76.204 kg Intake: Oral (ml) 1050 1950 IV Intake (ml) 400 Output: Urine (ml) 650 750 Toilet 650 750 Estimated Blood Loss (ml) 20 Other: Intake Quantity Yes Sufficient Number of Voids Toilet 1 1 Vital Signs Temp Pulse Resp BP Pulse Ox 37.6 C 75 16 138/72 H 90 L 12/30/17 07:27 12/30/17 07:27 12/30/17 07:27 12/30/17 07:27 12/30/17 07:27 ICD10 Worksheet Patient Problems: Problems Problem Status Onset Abdominal pain Acute Hypercalcemia Acute Hyponatremia Acute
[2017-12-30] MEDS: FUROSEMIDE 20 MG TAB PO SCH (10:05)
[2017-12-30] MEDS: LISINOPRIL 10 MG TAB PO SCH (10:05)
[2017-12-30] MEDS: SENNOSIDES/DOCUSATE SODIUM TAB PO SCH ×2 (10:05→20:31)
[2017-12-30] MEDS: ENOXAPARIN 40 MG/0.4 ML SYR SC SCH (10:05)
[2017-12-30] MEDS: METHOCARBAMOL 750 MG TAB PO PRN (15:40)
[2017-12-30] MEDS: ATORVASTATIN CALCIUM 10 MG TAB PO SCH (20:30)
[2017-12-30] MEDS: ACETAMN/DIPHENHYDRAMINE 500/25MG TAB PO SCH (20:30)
[2017-12-30] MEDS: GABAPENTIN 300 MG CAP PO SCH (20:30)
[2017-12-31] MEDS: oxyCODONE IR 5 MG TAB PO PRN ×2 (05:35→09:41)
[2017-12-31] MEDS: LEVOTHYROXINE 50 MCG TAB PO SCH (05:35)
[2017-12-31 07:55] VITALS: BP 101/52; PULSE 64; RESP 12; TEMP 97.8; O2SAT 94
[2017-12-31] MEDS: SENNOSIDES/DOCUSATE SODIUM TAB PO SCH (08:32)
[2017-12-31] MEDS: ENOXAPARIN 40 MG/0.4 ML SYR SC SCH (08:32)
[2017-12-31] MEDS: FUROSEMIDE 20 MG TAB PO SCH (08:33)
[2017-12-31] MEDS: LISINOPRIL 10 MG TAB PO SCH (08:33)
[2017-12-31] MEDS: METHOCARBAMOL 750 MG TAB PO PRN (08:33)
--- NOTE | 2017-12-31 10:23 | NEUSURGPN ---
Date of Surgery: 12/28/17 Post Op Day: 3 Assessment/Plan: A: 72 yo female sp L3-S1 minimally invasive decompression POD#3 P: - neuro stable - pain controlled -No toradol due to kidney function -PT/OT -DVT: TEDs, SCDs, Lovenox -discharge to home today Subjective: Pain controlled. No LE pain, numbness, tingling, weakness. Objective: Awake. Alert. PERRL Following commands Strength full at 5/5 Sensation intact Incision c/d/i with dressing Neurosurgery Physical Exam - Vitals, I&O, Labs I and O 12/30/17 12/31/17 01/01/18 05:59 05:59 05:59 Intake Total 1950 Output Total 750 1900 Balance 1200 -1900 Intake: Oral (ml) 1950 Output: Urine (ml) 750 1900 Toilet 750 1900 Other: Intake Quantity Yes Sufficient Number of Voids Toilet 1 3 Vital Signs Temp Pulse Resp BP Pulse Ox 36.6 C 64 12 101/52 L 94 12/31/17 07:54 12/31/17 07:54 12/31/17 07:54 12/31/17 08:33 12/31/17 07:54 ICD10 Worksheet Patient Problems: Problems Problem Status Onset Abdominal pain Acute Hypercalcemia Acute Hyponatremia Acute
== END 2017-12-31 13:18 | disposition home or self-care (01) | DRG 520 ==
LOC: F3N 08:51 → OBSVTOIN 12-29 17:00
PROVIDERS: ADMIT Neurological Surgery; ATTEND Neurological Surgery
DX: M48.062 Spinal stenosis, lumbar region with neurogenic claudication (principal); E78.5 Hyperlipidemia, unspecified; E03.9 Hypothyroidism, unspecified; N18.9 Chronic kidney disease, unspecified; I12.9 Hypertensive chronic kidney disease with stage 1 through stage 4 chronic kidney disease, or unspecified chronic kidney disease; K21.9 Gastro-esophageal reflux disease without esophagitis
CPT/HCPCS: 97116-GP; 97161-GP; 97166-GO; 97535-GO; G0378; G8978-GP-CK; G8979-GP-CI; G8980-GP-CI; J0171; J0690; J1650; J2250; J2405; J2704; J3010

== ENCOUNTER 2018-06-25 16:28 | Observation (INO) | payer OTHER ==
[2018-06-25] MEDS ORDERED: NS 1,000 ML IV ONE (16:40)
--- NOTE | 2018-06-25 16:40 | EDPHY ---
H & P Stated Complaint: Passing blood from rectum today;neg colonoscopy last year Time Seen by Provider: 06/25/18 16:40 HPI/ROS: HPI CHIEF COMPLAINT: Rectal bleeding. HISTORY OF PRESENT ILLNESS: Very pleasant 72-year-old female she is otherwise healthy, presents emergency room with 2 episodes of bright red blood per rectum. Does not have any significant pain. No epigastric pain, no chest pain , no shortness of breath. States to episode of mainly bright red blood. Has never had this before. Does take baby aspirin. Does state that she has a history of diverticulosis. Past Medical History: Hypertension, hyperlipidemia Past Surgical History: Back surgery Social History: Denies drugs alcohol tobacco Family History: Noncontributory ROS REVIEW OF SYSTEMS: 10 Systems were reviewed and negative with the exception of the elements mentioned in the history of present illness. Exam Constitutional triage nursing summary reviewed, vital signs reviewed, awake/ alert. Eyes normal conjunctivae and sclera, EOMI, PERRLA. HENT normal inspection, atraumatic, moist mucus membranes, no epistaxis, neck supple/ no meningismus, no raccoon eyes. Respiratory clear to auscultation bilaterally, normal breath sounds, no respiratory distress, no wheezing. Cardiovascular rate normal, regular rhythm, no murmur, no edema, distal pulses normal. Gastrointestinal soft, non-tender, no rebound, no guarding, normal bowel sounds, no distension, no pulsatile mass. Genitourinary no CVA tenderness. Musculoskeletal no midline vertebral tenderness, full range of motion, no calf swelling, no tenderness of extremities, no meningismus, good pulses, neurovascularly intact. Skin pink, warm, & dry, no rash, skin atraumatic. Neurologic awake, alert and oriented x 3, AAOx3, moves all 4 extremities equally, motor intact, sensory intact, CN II-XII intact, normal cerebellar, normal vision, normal speech. Psychiatric normal mood/affect. Heme/Lymph/Immune no lymphadenopathy. Differential Diagnosis: Includes but is not limited to in a particular order internal hemorrhoid bleeding, rectal bleeding from a mass, diverticular bleed, upper GI bleed fast Medical Decision Making: Plan for this patient basic blood draw, CBC, check H& H and platelets, rectal exam and re-evaluate. Re-evaluation: Rectal exam performed: Melissa Mejía at bedside as validation leader. Rectal exam performed gross blood present. Bright red blood. 1843: Patient has had 4-5 more episodes of bright red blood per rectum. Given the ongoing bleeding she is hemodynamically stable I will admit her to the hospitalist service. GI consult. Spoke with Dr. Nunez. Will Consult. Source: Patient - Personal History Current Tetanus Diphtheria and Acellular Pertussis (TDAP): Yes - Medical/Surgical History Hx Asthma: No Hx Chronic Respiratory Disease: No Hx Diabetes: No Hx Cardiac Disease: No Hx Renal Disease: No Hx Cirrhosis: No Hx Alcoholism: No Hx HIV/AIDS: No Hx Splenectomy or Spleen Trauma: No Other PMH: PSHx: breast tumor removed from L benign, hysterectomy. PMHx: colitis, spinal stenosis, HTN, high cholesterol, hypothyroidism - Social History Smoking Status: Former smoker Constitutional: Initial Vital Signs Temperature (C) 36.7 C 06/25/18 16:31 Heart Rate 90 06/25/18 16:31 Respiratory Rate 18 06/25/18 16:31 Blood Pressure 146/112 H 06/25/18 16:31 O2 Sat (%) 97 06/25/18 16:31 O2 Delivery Mode Room Air Allergies/Adverse Reactions: erythromycin base Allergy (Verified 06/25/18 16:31) gi upset Home Medications: Medication Instructions Recorded Gabapentin [Neurontin 300 MG (*)] 600 mg PO HS 10/25/16 Levothyroxine [Synthroid 50 mcg 50 mcg PO DAILY06 10/25/16 (*)] Lisinopril [Zestril 10 mg (*)] 10 mg PO DAILY 09/07/17 Simvastatin [Zocor] 20 mg PO HS 12/13/17 Acetamn/Diphenhydramine 500/25 2 each PO HS 06/25/18 [Tylenol PM (*)] Cholecalciferol Vit D3 [Vitamin D3 5,000 units PO DAILY 06/25/18 (*)] Hydrochlorothiazide [HCTZ (*)] 25 mg PO DAILY 06/25/18 Acetaminophen [Tylenol 325mg (*)] 650 mg PO Q4HRS PRN tab 06/26/18 Ferrous Sulfate [Iron] 325 mg PO DAILY #30 tablet 06/26/18 Medical Decision Making - Data Points Laboratory Results: Laboratory Results 06/25/18 17:09 06/25/18 17:09 Medications Given: Discontinued Medications Acetaminophen/Diphenhydramine HCl (Tylenol Pm) 2 each PO HS GILBERT Stop: 12/22/18 21:44 Last Admin: 06/25/18 22:26 Dose: 2 each Atorvastatin Calcium (Lipitor) 10 mg PO HS GILBERT Stop: 12/22/18 21:44 Last Admin: 06/25/18 22:27 Dose: 10 mg Cholecalciferol (Vitamin D) 5,000 units PO DAILY GILBERT Stop: 12/23/18 08:59 Last Admin: 06/26/18 10:08 Dose: 5,000 units Sodium Chloride (Ns) 1,000 mls @ 0 mls/hr IV EDNOW ONE; Wide Open PRN Reason: Protocol Stop: 06/25/18 16:41 Last Admin: 06/25/18 17:41 Dose: 1,000 mls Sodium Chloride (Ns) 1,000 mls @ 125 mls/hr IV CONT GILBERT Stop: 12/22/18 20:14 Last Admin: 06/26/18 04:21 Dose: 1,000 mls Levothyroxine Sodium (Synthroid) 50 mcg PO DAILY06 GILBERT Stop: 12/23/18 05:59 Last Admin: 06/26/18 06:10 Dose: 50 mcg Departure - Departure Disposition: [facility] Acute Clinical Impression: Rectal bleeding Condition: Good
[2018-06-25 17:34] LABS: PLATELET COUNT 358 10^3/uL (150-400)
[2018-06-25 17:44] LABS: INR 0.94 (0.83-1.16); PROTIME(PATIENT) 12.8 SEC (12.0-15.0)
[2018-06-25] MEDS ORDERED: HYDROCODONE/APAP 5/325 TAB PO PRN (20:10)
[2018-06-25] MEDS ORDERED: ONDANSETRON DISINTEGRATING 4 MG TAB PO PRN (20:10)
[2018-06-25] MEDS ORDERED: ONDANSETRON 4 MG/2 ML VIAL IVP PRN (20:10)
[2018-06-25] MEDS ORDERED: PROMETHAZINE HCL 25 MG/ML INJ IVP PRN (20:10)
[2018-06-25] MEDS ORDERED: oxyCODONE IR 5 MG TAB PO PRN (20:10)
[2018-06-25] MEDS ORDERED: ACETAMINOPHEN 325 MG TAB PO PRN (20:10)
[2018-06-25] MEDS: NS 1,000 ML IV SCH (20:37)
--- NOTE | 2018-06-25 21:03 | SOAPPROG ---
[facility] Progress Note Assessment/Plan: Assessment/Plan: Chart reviewed, pt. not seen yet, formal note to follow. Hct starts out normal. Nl coags. No abdominal pain. Colonoscopy just three years ago with diverticulosis from 15 - 70 cm, with small internal hemorrhoids. Overall, suspect a diverticular bleed, especially without abdominal pain. With her normal coags, suspect will resolve on its own. - no need for repeat colonoscopy at this time, especially with her last being just three years ago - agree with serial H/Hs, to make sure resolves - clear liquids for now Thanks! 06/25/18 21:00 Objective: Vital Signs Temp Pulse Resp BP Pulse Ox 36.4 C 94 16 90/72 L 94 06/25/18 20:14 06/25/18 20:14 06/25/18 20:14 06/25/18 20:14 06/25/18 20:14 06/24/18 06/25/18 06/26/18 05:59 05:59 05:59 Intake Total 1000 Balance 1000 PT 12.8 SEC (12.0-15.0) 06/25/18 17:09 INR 0.94 (0.83-1.16) 06/25/18 17:09 ICD10 Worksheet Patient Problems: Problems Problem Status Onset Rectal bleeding Acute Abdominal pain Acute Hypercalcemia Acute Hyponatremia Acute
[2018-06-25] MEDS ORDERED: ATORVASTATIN CALCIUM 10 MG TAB PO SCH (21:45)
[2018-06-25] MEDS ORDERED: ACETAMN/DIPHENHYDRAMINE 500/25MG TAB PO SCH (21:45)
--- NOTE | 2018-06-25 21:45 | GHP ---
DATE OF ADMISSION: 06/25/2018 CHIEF COMPLAINT: Rectal bleeding. HISTORY: This is a 72-year-old female with no significant past medical history other than hypertensi on, hypothyroidism, who presents with multiple episodes of bleeding per rectum. The patient notes it began earlier this morning. She had 2 episodes at home and then was even having bleeding in her und erwear that she did not know was happening. She came to the ER where her symptoms continued and she had at least 5 more bouts of bright red blood per rectum down in the emergency department. She notes she does feel somewhat lightheaded. She does not have any abdominal pain. She has never had simila r symptoms in the past. She does have known diverticulosis. She does take a baby aspirin daily, but otherwise denies use of NSAIDs or alcohol. PAST MEDICAL HISTORY: Includes hypertension, hyperlipidemia, hypothyroidism, chronic kidney disease with a baseline creatinine of 1.5. PAST SURGICAL HISTORY: Recent lumbar decompression. FAMILY HISTORY: Denies. SOCIAL HISTORY: She is a nonsmoker, nondrinker, nondrug user. She has 3 children. REVIEW OF SYSTEMS: 10-point review of systems obtained, negative except as per HPI. HOME MEDICATIONS: 1. Simvastatin. 2. Lisinopril. 3. Levothyroxine. 4. Hydrochlorothiazide. 5. Gabapentin. 6. Cholecalciferol. 7. Tylenol PM. ALLERGIES: Erythromycin. PHYSICAL EXAM: VITAL SIGNS: BP 90/72, heart rate 94, respiratory rate 16, O2 sats 94% on room air. Temperature is 36.4. GENERAL APPEARANCE: This is a well-developed, well-nourished female. She is awake and alert. She is in no acute distress. EYES: Anicteric. HENT: Oropharynx clear. CARDIOVA SCULAR: Regular rate and rhythm, no MRG. PULMONARY: CTA bilaterally. Normal work of breathing. A BDOMEN: Soft, nontender, and nondistended. Positive bowel sounds. EXTREMITIES: No clubbing, cyano sis, or edema. SKIN: Warm, dry, well perfused. NEURO/PSYCH: Oriented, appropriate, pleasant. CLINICAL DATA: Labs reviewed notable for white blood cell count of 9.1, hematocrit of 39.8, platelet s of 358. Coags are normal. Chemistry remarkable for a creatinine of 1.5. Glucose of 106. ASSESSMENT AND PLAN: This is a 72-year-old female presenting with bright red blood per rectum. 1. Bright red blood per rectum. The patient continues to have frequent bloody bowel movements, thou gh her hemoglobin and hematocrit thus far, has been stable and normal. She likely is having a divert icular bleed given no active hemorrhoidal bleed was appreciated by rectal exam [facility]. Gastroenterology has been consulted and plan for now is monitor serial hemoglobin and hematoc rit without plan for colonoscopy in the morning unless her symptoms do not resolve on their own. She did have a colonoscopy 3 years ago which was normal. 2. Hypotension in the setting of gastrointestinal bleeding and poor by mouth intake for the last 24 hours. Will continue intravenous fluids overnight. 3. Chronic kidney disease. This is of uncertain etiology, but in reviewing her laboratories, her cr eatinine is typically in the mid 1's. She will continue to follow with her primary care physician tadeo nj. 4. Hypertension. For right now, she is mildly hypotensive. Will hold her lisinopril and hydrochlor othiazide. 5. Hypothyroid. Will resume her Synthroid. 6. Lumbar stenosis status post lumbar decompression. She does continue to take gabapentin which yohana l be continued inhouse. 7. Hyperlipidemia. Will continue her simvastatin. 8. Observation status. Suspect patient will need less than 48-hour stay for evaluation and manageme nt of above. 9. Patient is new to my care. Old records reviewed summarized as per History of Present Illness and Past Medical History. Care plan reviewed with Dr. Nunez of gastroenterology, including plans for mon itoring hemoglobin and hematocrit overnight. /[id number]/MODL
[2018-06-26] MEDS: NS 1,000 ML IV SCH (04:21)
[2018-06-26] MEDS ORDERED: LEVOTHYROXINE 50 MCG TAB PO SCH (06:00)
[2018-06-26 06:53] LABS: PLATELET COUNT 266 10^3/uL (150-400)
[2018-06-26] MEDS ORDERED: CHOLECALCIFEROL VIT D3 1,000 UNITS TAB PO SCH (09:00)
--- NOTE | 2018-06-26 09:16 | HOSPPROG ---
Hospitalist Progress Note Assessment/Plan: 72-year-old woman admitted with bright red blood per rectum. She has a history of hypertension high cholesterol and hypothyroidism as well as chronic renal failure with a baseline creatinine of 1.5. Her bleeding has spontaneously resolved and it is thought to be secondary to diverticular bleed. # bright red blood per rectum with some acute blood loss anemia. * Supportive care, monitor H&H till stable * Continue clear liquids until H&H stable * Discussed with GI # hypertension, stable at this time monitor # dyslipidemia on a statin # primary prevention for stroke and heart disease currently on an aspirin daily. Recommend she discontinue this for now. # chronic renal failure with stable H&H # hypothyroidism on replacement # DVT prophylaxis chemical prophylaxis not indicated due to GI bleeding encourage ambulation Subjective: Patient new to me and chart reviewed. Patient doing well has some gas but no further bleeding since last night at 8:00 p.m. Objective: Vital Signs Temp Pulse Resp BP Pulse Ox 36.4 C 54 L 12 137/69 H 97 06/26/18 07:39 06/26/18 07:39 06/26/18 07:39 06/26/18 07:39 06/26/18 07:39 Laboratory Results 06/26/18 05:20 06/26/18 05:20 06/25/18 06/26/18 06/27/18 05:59 05:59 05:59 Intake Total 3176 582 Balance 3176 582 PT 12.8 SEC (12.0-15.0) 06/25/18 17:09 INR 0.94 (0.83-1.16) 06/25/18 17:09 - Physical Exam Constitutional: no apparent distress, not in pain Eyes: PERRL, EOMI Ears, Nose, Mouth, Throat: moist mucous membranes Cardiovascular: regular rate and rhythym, no murmur, rub, or gallop Respiratory: no respiratory distress, clear to auscultation Gastrointestinal: normoactive bowel sounds, tenderness (Soft with minimal tenderness in the left mid quadrant to deep palpation no rebound or guarding) Genitourinary: no bladder fullness, No posadas in urethra Skin: warm, normal color Musculoskeletal: full muscle strength Neurologic: AAOx3 Psychiatric: interacting appropriately, not anxious ICD10 Worksheet Patient Problems: Problems Problem Status Onset Abdominal pain Acute Hyponatremia Acute Hypercalcemia Acute Rectal bleeding Acute
--- NOTE | 2018-06-26 09:34 | ASMTCASEMG ---
Living Arrangements What is your living Answers: With Spouse arrangement? Who do you live with? Type Of Residence What kind of residence do Answers: House you live in? Discharge Plan Comments Coordination Status Comments Notes: Pt is a 72 y/o man admitted for rectal bleeding. Pt has a hx of hypertension and hypothyroidism. Pt will most likely d/c independent when medically stable. No therapies ordered at this time. CM available for changes. Plan: Independent Date Signed: 06/26/2018 09:34 AM Electronically Signed By:TIMMY Page
[2018-06-26 12:31] VITALS: BP 152/74
--- NOTE | 2018-06-26 12:48 | GCON ---
GI INPATIENT CONSULTATION DATE OF CONSULTATION: 06/26/2018 REFERRING PHYSICIAN: Lupis Allred MD REASON FOR CONSULTATION/HISTORY: I was kindly requested to see Tameka by Dr. Lupis Allred in consultation for a chief complaint of gastrointestinal bleeding. She is a 72-year-old white female, who began to have this yesterday, with approximately 4-5 episodes of bright red blood per rectum. She denies abdominal pain with this. She denies fever, rigors, chills. Of note, she has not had any further bleeding since last night at 8 p.m. Colonoscopy in November of 2014 showed diverticulosis from 15-70 cm. She, otherwise, had small internal hemorrhoids. PAST MEDICAL HISTORY: 1. As above. 2. Thyroid disease. 3. Hypertension. 4. Elevated lipids. 5. Back surgery. ALLERGIES: Include erythromycin. OUTPATIENT MEDICATIONS: Include baby aspirin, Neurontin, Synthroid, Zestril, Lasix, and Zocor. INPATIENT MEDICATIONS: Include IV fluids, n.p.o. status. SOCIAL HISTORY: Negative for alcohol abuse. FAMILY HISTORY: Negative for similar bleeding. REVIEW OF SYSTEMS: Positive pertinent review of systems as per my HPI. Otherwise, complete review of systems is negative. PE: constitutional nontoxic, VSS skin warm, dry eyes PERRLA, EOMi hent o/p without masses, moist mucosa cor nl S2, nl PMI respiratory lungs CTAP anteriorly gastrointestinal nontender, no masses felt neuro grossly nonfocal, cr. n. intacts psychiatric orientation, affect appropriate musculoskeletal strength grossly normal throughout, nl station LABORATORIES: Include initial hematocrit 39.8%, then 29.9%, and now 31.5%. BUN 24, with creatinine 1.5. Normal coags. Stool Hemoccult positive. Her colonoscopy in 2014 otherwise showed a 2 mm hyperplastic polyp, and a normal terminal ileum. ASSESSMENT: Gastrointestinal bleeding: By her description, certainly lower in source. In turn, suspect diverticular, with her known history of diverticulosis on colonoscopy 3 years ago and lack of abdominal pain. Now, her hematocrit has stabilized and she has not had any further bleeding. PLAN: 1. No colonoscopy needed at this point, with her just having one 3 years ago. 2. Feed. 3. Buff cap IV. 4. If her hematocrit remains stable, as I suspect, okay to discharge home either tonight or tomorrow morning. I will sign off. Please call if we can be of further help in the future. Copy requested to: Primary Care Physician /[id number]/MODL MTDD
--- NOTE | 2018-06-26 16:25 | GDS ---
DIAGNOSES: 1. Bright red blood per rectum, likely diverticular bleed. 2. Hypertension. 3. Hypothyroidism. 4. Dyslipidemia. CONSULTATIONS: Dr. Benny Nunez, GI of the [facility]. HOSPITAL COURSE: Ms. Coats is a 72-year-old who came in with bright red blood per rectum. This was painless and spontaneously resolved. She had a mild drop in her hemoglobin from 13 down to 10 an d it has been stable. She stopped bleeding about 8 p.m. the night of admission and did not have any recurrent bleeding. Her hemoglobin stabilized prior to discharge as noted above. Recommendations fr om GI are not to repeat colonoscopy as it had been done fairly recently, but to take iron daily and f ctlow up with her primary care provider to follow her blood counts and certainly call GI should she h ave further GI bleeding. I also recommend she increase her fiber in her diet and to discontinue her aspirin daily. CONDITION ON DISCHARGE: Good. DISCHARGE MEDICATIONS: Please see discharge medication form. FOLLOWUP: Followup will be with her primary care provider in a week. I recommend a followup blood t est in 2-3 weeks to make sure hemoglobin continues to improve on iron. /[id number]/MODL
[2018-06-26] MEDS ORDERED: GABAPENTIN 300 MG CAP PO SCH (21:00)
[2018-06-26] MEDS ORDERED: ACETAMN/DIPHENHYDRAMINE 500/25MG TAB PO SCH (21:00)
== END 2018-06-26 16:39 | disposition home or self-care (01) ==
LOC: F3E 19:59
PROVIDERS: ADMIT Internal Medicine; ATTEND Internal Medicine
DX: K62.5 Hemorrhage of anus and rectum (principal); I10 Essential (primary) hypertension; E03.9 Hypothyroidism, unspecified; E78.5 Hyperlipidemia, unspecified; N18.9 Chronic kidney disease, unspecified; D62 Acute posthemorrhagic anemia; E86.9 Volume depletion, unspecified
CPT/HCPCS: 96361; 96374; 96375; 96376; 99285; G0378